=== PATIENT | female | born 1965 | race Two or more races ===

== ENCOUNTER 2018-03-16 19:48 | Emergency (ER) | payer MEDICARE ==
[~2018-03-16] VITALS: Ht 167.6 cm; Wt 73.0 kg
[2018-03-16 21:15] VITALS: BP 156/90
== END 2018-03-16 22:55 | disposition home or self-care (01) ==
LOC: ER 19:48
DX: E11.9 Type 2 diabetes mellitus without complications (principal); F31.9 Bipolar disorder, unspecified; F20.9 Schizophrenia, unspecified; F17.200 Nicotine dependence, unspecified, uncomplicated; Z79.4 Long term (current) use of insulin
CPT/HCPCS: 82962; 99283